=== PATIENT | female | born 1980 | race Asian ===

== ENCOUNTER 2025-01-03 11:09 | Outpatient (AMB) | payer OTHER, SELFPAY ==
--- NOTE | 2025-01-03 11:12 | AM.OFFWIN_ITS ---
Intake Vital Signs 01/03/25 11:16 Height 5 ft 2.8 in Weight 126 lb BMI 22.5 BP 113/63 Blood Pressure Location Rt brachial Position Sitting Pulse 74 Pulse Source Pulse Oximeter Temp 97.7 F Temp Source Oral Pulse Oximetry (%) 97 Oxygen Delivery Method Room Air Intake Visit Reasons: EP - Stomach Pain Intake Note: The patient complains of chronic epigastric area pain for over 10 years. She also presents the history of change in her stool color to brown or black. Allergies No Known Allergies Allergy (Verified 01/03/25 11:25) Do you need a note to return to daycare/school/sports/work: No HPI HPI Comments History of Present Illness Details History of Present Illness The patient is a 44-year-old female with a PMH of GERD, abnormal uterine bleeding status post laparoscopic total hysterectomy presenting for evaluation of stomach pain. - The patient reports a 10-year history of stomach pain, characterized by heartburn and excessive gas. - The pain is located in the upper abdom en and worsened by certain food. - She reports a particularly severe epis ode of pain approximately two weeks ago. - Associated symptoms include occasional burping - She currently takes daily probiotics a nd uses Gas-X as needed, and recently tried [id number] famotidine 10 mg, which provided some relief. - She noticed her stools became green, b ut she denies seeing any blood or black, tarry stools. - The patient has a history of two prior H. pylori infections in the past - She previously used to see [facility]. She was prescribed ranitidine and Protonix in the past, however states that she has stopped using both of those medications. 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 Status Post Hysterectomy and BSO: - The patient underwent a hysterectomy o n Jul 14 2024. - Post-operatively, she was prescribed i buprofen but did not take it for more than two days due to minimal pain. Review of Systems - CONSTITUTIONAL: Denies any fevers or c hills - GASTROINTESTINAL: Reports chronic epig astric pain, heartburn, excessive gas - Denies diarrhea or constipation. Denie s red blood in stool or black tarry/coffee ground appearance to stool. - Denies nausea, vomiting, or melena. Physical Exam General Appearance: Normal appearance, well developed. No acute distress Head: Normocephalic, atraumatic Pulmonary: No respiratory distress. Speaking in full sentences Abdomen: Minimal epigastric TTP. Normal Bowel sounds. No guarding or rigidity. Musculoskeletal: Moving all extremities spontaneously and against gravity Mental Status: Alert and Oriented x 3 Psychiatric: Normal mood. Normal affect. Physical Exam Vital Signs: Last Vital Signs Temp 97.7 F 01/03/25 11:16 Pulse 74 01/03/25 11:16 BP 113/63 01/03/25 11:16 Pulse Ox 97 01/03/25 11:16 Oxygen Delivery Method Room Air 01/03/25 11:16 BMI result Body Mass Index 22.5 Assessment & Plan Assessment & Plan (1) GERD (gastroesophageal reflux disease): Code(s): K21.9 - Gastro-esophageal reflux disease without esophagitis Qualifiers: Esophagitis presence: esophagitis presence not specified Qualified Code(s): K21.9 - Gastro-esophageal reflux disease without esophagitis Plan - The patient's presentation of epigastric pain, heartburn, and gas is consistent with GERD/gastritis. - An acute upper GI bleed is less likely, as she denies black, tarry stools, though she was counseled on symptoms to watch for. - Prescribed pantoprazole 20 mg once daily for symptom management. - Instructed to take [id number] famotidine 20 mg concurrently with pantoprazole. - Advised to avoid NSAIDs (e.g., ibuprofen), acidic foods (e.g., tomatoes, fruit juices), coffee, chocolate, and alcohol. - Counseled on lifestyle modifications, including avoiding lying down directly after meals and elevating the head of the bed. - Given her history of two prior H. pylori infections, recommended potential testing if no improvement in symptoms. - Discussed need to stop all proton pump inhibitors and H2 blockers (pantop razole, famotidine) for 14 days before H. pylori testing to ensure accuracy. - Provided strict emergency department precautions for signs of a GI bleed (black, tarry stools), severe pain, persistent vomiting, or new fevers. - Patient reports she has an upcoming appointment to establish with a new PCP in the next few weeks. Patient was informed and verbally consented to the use of an ambient scribe for clinic note documentation during the visit. Medications: New pantoprazole (Protonix) 20 mg PO DAILY 14 tabs 0RF Patient Instructions: Avoid acidic foods such as fruit juices, tomato sauces, coffee, and chocolate Avoid Motrin, Advil, Ibuprofen at this time Drink small sips of fluids frequently throughout the day Eat small frequent soft, bland meals throughout the day, avoid large meals Take pepcid 20 mg daily along with pantoprazole 20 mg daily Try to avoid eating after 8 pm Elevate the head of the bed by 8 inches which can reduce acid reflux while sleeping If worse, increasing pain, black tarry stools, nausea and vomiting and cant keep food or fluids down, go to the ER Follow up with your doctor for recheck and further resting Coding Level of Care Code New Pt Level 3 (04843) Diagnoses Gastroesophageal reflux disease, unspecified whether esophagitis present K21.9 Esophagitis presence: esophagitis presence not specified
[2025-01-03 11:16] VITALS: BP 113/63; PULSE 74; TEMP 36.5; O2SAT 97; BMI 22.5
== END 2025-01-03 12:12 | disposition home or self-care (01) ==
PROVIDERS: PCP Student in an Organized Health Care Education/Training Program; Visit Provider Family Medicine
DX: K21.9 Gastro-esophageal reflux disease without esophagitis (principal)

== ENCOUNTER 2025-01-24 08:29 | Outpatient (REF) | payer OTHER, SELFPAY ==
[2025-01-24 13:30] LABS: MANUAL DIFF FLAG NO
[2025-01-24 13:44] LABS: Hematocrit 42.6 % (37.0-47.0); Hemoglobin 14.1 g/dl (12.0-16.0); Imm Gran Abs Auto 0.02 X10*3/uL (0.00-0.03); Imm Gran Pct Auto 0.4 % (0.0-0.4); Lymphocytes Absolute Auto 1.2 X10*3/uL (1.2-4.9); Mean Corpuscular HGB Conc 33.1 g/dl (31.0-35.0); Mean Corpuscular Hemoglobin 28.0 pg (27.0-33.0); Mean Corpuscular Volume 84.5 fL (80.0-98.0); NRBC Abs Auto 0.000 X10*3/uL (0.0-0.012); NRBC Pct Auto 0.0 /100WBC (0.0-0.2); Platelet Count 335 X10*3/uL (160-400); Red Blood Count 5.04 X10*6/uL (4.20-5.50); White Blood Count 5.6 X10*3/uL (4.8-10.8)
[2025-01-24 14:01] LABS: Alanine Aminotransferase 16 U/L (0-31); Albumin Level 5.0 g/dL (3.5-5.0); Alkaline Phosphatase 57 U/L (39-117); Anion Gap 12 (12-20); Aspartate Amino Transferase 19 U/L (5-31); Blood Urea Nitrogen 16 mg/dL (9-16); Calcium 10.0 mg/dL (8.4-10.2); Carbon Dioxide 26 mmol/L (22-29); Chloride 106 mmol/L (96-108); Cholesterol 167 mg/dL (<200); Estimated Glomerular Filt Rate > 60; HDL Cholesterol 60 mg/dL (>40); Magnesium 2.3 mg/dL (1.6-2.6); Potassium 3.9 mmol/L (3.3-5.1); Sodium 140 mmol/L (135-145); Total Protein 8.0 g/dL (6.5-8.0); Triglycerides 89 mg/dL (<150)
[2025-01-24 14:24] LABS: Folate 12.6 ng/mL (> or = 4.0); Vitamin B12 929 pg/mL (200-900)
[2025-01-25 04:51] LABS: Syphilis Screen Nonreactive (Nonreactive)
[2025-01-25 05:11] LABS: HBS Num1 > 1000.00 mIU/mL (0-7.99); HBsAGNum1 0.28 S/CO (0.00-0.99); HIV Num 1 0.07 S/CO (0.00-0.99); Hepatitis B Surface Antigen Negative (Negative); ~HepC Num1 0.12 S/CO (0.00-0.79); ~Hepatitis B Surface Antibody REACTIVE (Nonreactive); ~Hepatitis C Antibody Nonreactive (Nonreactive)
[2025-01-28 17:13] LABS: VITAMIN D (1,25 OH) D3 41 pg/mL; Vit D (1,25-Dihydroxy) Total 41 pg/mL (18-72); Vitamin D (1,25 OH) D2 <8 pg/mL
== END 2025-01-24 08:30 | disposition home or self-care (01) ==
LOC: HO.HKASLDS 08:29
PROVIDERS: PCP Student in an Organized Health Care Education/Training Program; Visit Provider Student in an Organized Health Care Education/Training Program
DX: Z13.31 Encounter for screening for depression (principal); Z13.39 Encounter for screening examination for other mental health and behavioral disorders; K21.9 Gastro-esophageal reflux disease without esophagitis; R10.13 Epigastric pain; Z23 Encounter for immunization; Z13.1 Encounter for screening for diabetes mellitus; Z13.6 Encounter for screening for cardiovascular disorders; Z86.2 Personal history of diseases of the blood and blood-forming organs and certain disorders involving the immune mechanism
CPT/HCPCS: 36415; 80053; 80061; 82607; 82652; 82746; 83036; 83735; 84443; 85025; 86706; 86780; 86803; 87340; 87389; 90471; 90656; 96127

== ENCOUNTER 2025-01-24 08:29 | Outpatient (AMB) | payer OTHER, SELFPAY ==
--- NOTE | 2025-01-24 08:30 | A.OFFPC_ITS ---
Vital Signs 01/24/25 08:31 Height 5 ft 3.82 in Weight 127 lb 4 oz BMI 22.0 BP 99/60 Blood Pressure Location Lt brachial Position Sitting Pulse 75 Pulse Source Pulse Oximeter Temp 98.1 F Temp Source Oral Pulse Oximetry (%) 98 Oxygen Delivery Method Room Air Intake Visit Reasons: EP - est care Accompanied by: Self / Same As Patient Allergies No Known Allergies Allergy (Verified 01/24/25 08:31) Tobacco use date assessed: 01/24/25 Dental Screening Dental Screen Date: 01/24/25 Did you have a dental visit in the last 12 months?: Yes HPI HPI Comments History of Present Illness Details Consent The options for colon cancer screening were discussed with the patient, inclu ding an at-home stool test kit or a colonoscopy involving sedation and an internal camera to check for polyps. The patient verbally consented to proceed with a referral for a colonoscopy. Patient was informed and verbally consented to the use of an ambient scribe for clinic note documentation during this visit. History of Present Illness The patient is a 44 year old individual presenting for evaluation of stomach problems and to establish care. Gastroesophageal Reflux Disease: The patient has been experiencing stomach problems for over 10 years, characterized by frequent heartburn, excessive gas, and occasional pain. The patient notes that gas is particularly bad after eating vegetables. A prior trial of pantoprazole was not helpful, and a recent prescription for pantoprazole 20 mg offered only slight relief from the persistent heartburn. The patient also reports intermittent pain on the right side of the abdomen and recalls being told about an unspecified finding on the liver in the past. History of Helicobacter pylori infection: The patient has a history of two prior H. pylori infections, with the first occurring in 2011 and the second around 2015. The patient recalls a prior test for H. pylori may have been inaccurate because the patient was not instructed to stop taking medication beforehand. History of uterine fibroids: The patient had uterine fibroids which caused profuse bleeding, leading to severe anemia that necessitated a blood transfusion. This culminated in a hysterectomy on June 24 of the current year. Preventative Care: The patient is 44 years old and has never had a colon cancer screening. The last Pap smear was three years ago, and a mammogram this year was normal. The patient had an upper endoscopy approximately 10 years ago. Surgical History: - Hysterectomy for uterine fibroids on of current year. Medications: - Pantoprazole 20 mg for heartburn. - Unspecified mjno-pjp-cagjouu medicatio n from [facility], which was stopped due to causing constipation. Social History: - The patient denies smoking, alcohol us e, and illicit drug use. - The patient is single with two sons, b oth via normal delivery. 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 - Diet consists of regular foods like me at and vegetables, and the patient is currently trying to reduce sugar intake from items like cakes and dim sum. Family History: - Father had thyroid cancer. Diagnostic Results: - Mammogram: Normal results from this ye ar. Review of Systems - Constitutional: Denies weight loss. - Gastrointestinal: Reports persistent h eartburn, excessive gas, and interm ittent abdominal pain, sometimes localized to the right side. - Genitourinary: Status post-hysterectom y, with cessation of menses. 10-point ROS reviewed and negative excep t as noted in HPI Past Medical History - Chronic dyspepsia for over 10 years. - History of H. pylori infection, treate d in 2011 and again circa 2016. - History of uterine fibroids with jorgito rhagia and severe anemia requiring a blood transfusion. - History of upper endoscopy approximate ly 10 years ago. Health Maintenance - The patient is 44 years old and is due for initial colon cancer screening. - The last Pap smear was 3 years ago. - A mammogram was completed this year wi th normal results. - The patient is establishing care as a new patient. - Discussed dietary modifications, inclu ding an attempt to reduce sugar intake. Physical Exam General: Well-appearing, in no acute distress. Vital signs: Within normal limits. HEENT: Normocephalic, atraumatic. PERRLA, EOMI. Conjunctiva clear, sclera anicteric. Oropharynx clear, mucous membranes moist. TMs intact bilaterally. Neck: Supple, no lymphadenopathy, no thyromegaly, no JVD or carotid bruits. Cardiovascular: RRR, normal S1/S2, no murmurs, rubs, or gallops. Peripheral pulses 2+ and symmetric. No edema. Respiratory: Lungs clear to auscultation bilaterally, no wheezes, rales, or rhonchi. Normal effort. Abdomen: Soft, non-tender, non-distended. Normoactive bowel sounds. No hepatosplenomegaly, no masses. Reports right-sided pain, possibly related to gas. MSK: Full range of motion, no joint swelling or deformity. Normal gait. Skin: Warm, dry, intact. No rashes, lesions, or pallor. Neuro: Alert and oriented x3. Cranial nerves II-XII intact. Strength 5/5 throughout. Sensation intact. Reflexes 2+ symmetric. Normal coordination and gait. Psych: Appropriate mood and affect. Normal judgment and insight. Plan 1. Gastroesophageal Reflux Disease And A bdominal Pain - Prescribed pantoprazole 20 mg to be ta lebron twice daily, once in the morning and once at night; however, the patient is instructed to wait to start this until after collecting a stool sample. - Prescribed simethicone 125 mg to be ta lebron before meals for gas. - A referral will be placed for gastroen terology. - Follow-up scheduled in two weeks to as sess medication efficacy and review test results. 2. Screening For Helicobacter Pylori - Order for a stool sample will be place d to test for H. pylori. - Patient instructed to stop taking pant oprazole for at least two weeks before collecting the stool sample to ensure test accuracy. 3. Screening For Malignant Neoplasm Of C olon - A referral will be placed for a screen ing colonoscopy. 4. New Patient Visit - Baseline bloodwork ordered, including a complete blood count, comprehensive metabolic panel, thyroid studies, B12, folate, and vitamin D. - A urinalysis will be performed. Discussion Notes I saw the patient today to establish care for chronic stomach problems. We discussed the symptoms of heartburn, gas, and pain, as well as the patient's history of two prior H. pylori infections. I explained the plan to re-test for H. pylori via a stool sample, emphasizing the need to hold off on taking pantoprazole for two weeks prior to collection to ensure an accurate result. I prescribed simethicone for gas and will have the patient start pantoprazole 20mg twice daily after the stool collection is complete. As the patient is 44, I discussed the indication for colon cancer screening. We reviewed the options of an at-home stool test versus a colonoscopy, and the patient opted for a colonoscopy referral, which I will place. I am also placing a referral to gastroenterology for further evaluation. I reassured the patient that cancer is unlikely given the lack of weight loss. We will obtain baseline labs today and follow up in two weeks to review results and progress. Patient Instructions - Go to the lab for blood tests and a ur ine test today. - Do NOT take your pantoprazole medicine for at least two weeks. - After waiting two weeks, collect a sto ol sample using the kit you will be given and return it for testing. - After you have turned in the stool navjot ple, you may start taking Pantoprazole 20 mg twice a day (once in the morning and once at night). - You can take Simethicone 125 mg before you eat to help with gas. - Our office will send a referral for yo u to have a colonoscopy for colon cancer screening; their office will call you to schedule it. - We are also referring you to a stomach specialist (combustion engineer), who will also call you for an appointment. - Please make a follow-up appointment to see me in two weeks. Medical Decision Making The patient is a 44-year-old individual establishing care for chronic dyspepsia symptoms, including heartburn and gas, ongoing for over 10 years. The patient's history is significant for two prior H. pylori infections, raising suspicion for a recurrent or persistent infection. To ensure diagnostic accuracy, a stool antigen test for H. pylori is ordered, with explicit instructions to withhold PPI therapy for two weeks to prevent a false-negative result, which may have been an issue with prior testing. The therapeutic plan involves symptomatic control of gas with simethicone, followed by an empiric trial of increased-dose pantoprazole (20 mg BID) after the H. pylori test is completed. The differential diagnosis remains broad and includes refractory GERD, peptic ulcer disease, and functional dyspepsia; malignancy is less likely given the absence of alarm symptoms like weight loss. Due to the chronicity of symptoms and partial response to treatment, a referral to gastroenterology is warranted for consideration of further evaluation, such as an EGD. Health maintenance was also addressed. As the patient is 44, a screening colonoscopy is indicated and a referral has been placed per patient preference. Baseline labs are ordered to formally establish care, and a two-week follow-up is planned to discuss results and assess clinical progress. Total Time Statement 30 min Total time spent caring for the patient today includes pre-visit chart review, documentation, review of laboratory and diagnostic imaging results, medication reconciliation, medically necessary evaluation, counseling on diagnoses, care coordination, ordering appropriate tests and medications, review of tests performed by other providers, reporting test results to the patient, and communication with other healthcare providers. [facility] Medical History (Updated 01/24/25 @ 09:05 by Silver Llanes MD) Bloating History of uterine fibroid Family history of thyroid cancer History of anemia History of blood transfusion Epigastric pain History of Helicobacter pylori infection Chronic GERD Surgical History (Updated 01/24/25 @ 09:04 by Silver Llanes MD) H/O: hysterectomy Family History (Updated 01/24/25 @ 08:42 by Andressa Guzman STUDIO OPERATIONS MANAGER) Mother No problems noted. Father Thyroid cancer Social History Housing: House Patient Tobacco Use Status: Never used Tobacco e-Cigarette/Vaping Use: Never Used service: No Current occupational status: employed Cognitive needs: No Hearing needs: No Vision needs: No Questionnaire PHQ-9 Over the last 2 weeks, how often have you been bothered by any of the following problems? 1. Little interest or pleasure in doing things: not at all 2. Feeling down, depressed, or hopeless: not at all 3. Trouble falling or staying asleep, or sleeping too much: several days 4. Feeling tired or having little energy: several days 5. Poor appetite or overeating: not at all 6. Feeling bad about yourself - or that you are a failure or have let yourself or your family down: not at all 7. Trouble concentrating on things, such as reading the newspaper or watching television: not at all 8. Moving or speaking so slowly that other people could have noticed. Or the opposite - being so fidgety or restless that you have been moving around a lot more than usual: not at all 9. Thoughts that you would be better off or of hurting yourself in some way: not at all Total score: 2 Depression Screening Interpretation: Negative Depression Screening Done: Yes Source: Developed by Drs. Austyn Henning, Magui Antonio, Kade Steele and colleagues, with an educational ralph from [employer]. Thrive Questionnaire Date Thrive assessed: 01/24/25 I am a: Patient What is your living situation today?: I have a steady place to live Within the past 12 months, did the food you bought not last and you didn't have the money to get more?: I choose not to answer this question Within the past 12 months, did you worry whether your food would run out before you got money to buy more?: I choose not to answer this question Do you have trouble paying for medicines?: No Do you have trouble getting transportation to medical appointments?: No Do you have trouble paying your heating and electricity bill?: No Do you have trouble taking care of your child, family member or friend?: No Are you currently unemployed and looking for a job?: No Are you interested in more education?: Yes Please select the resources that you would like help with: Education Currently or been in a relationship where the following occur: I choose not to answer THRIVE Score: 0 AUDIT C Alcohol Use Questionnaire (AUDIT-C) 1. How often do you have a drink containing alcohol?: Never Total Score: 0 FROYLAN-7 AMB Questionnaire FROYLAN-7 Date FROYLAN - 7 assessed: 01/24/25 Feeling nervous, anxious, or on edge: 0 = Not at all Not being able to stop or control worryin = Not at all Worrying too much about different things: 1 = Several days Trouble relaxin = Not at all Being so restless that it is hard to sit still: 0 = Not at all Becoming easily annoyed or irritable: 0 = Not at all Feeling afraid as if something awful might happen: 0 = Not at all Total FROYLAN-7 score (0-4 normal; 5-9 mild; 10-14 moderate; 15-21 severe): 1 Source: Developed by Drs. Austyn Henning, Magui Antonio, Kade Steele and colleagues, with an educational ralph from [employer]. Review of Systems Narrative Review of Systems - Constitutional: Denies weight loss. - Gastrointestinal: Reports persistent heartburn, excessive gas, and intermittent abdominal pain, sometimes localized to the right side. - Genitourinary: Status post-hysterectomy, with cessation of menses. 10-point ROS reviewed and negative except as noted in HPI Physical exam (Primary Care) Vital Signs: Last Vital Signs Temp 98.1 F 01/24/25 08:31 Pulse 75 01/24/25 08:31 BP 99/60 01/24/25 08:31 Pulse Ox 98 01/24/25 08:31 Oxygen Delivery Method Room Air 01/24/25 08:31 BMI result Body Mass Index 22.0 Tobacco/Smoking Status: Tobacco use Status Tobacco use date assessed 01/24/25 01/24/25 08:34 Patient Tobacco Use Status Never used Tobacco 01/24/25 08:34 e-Cigarette/Vaping Use Never Used 01/24/25 08:44 PHQ-9: PHQ-9 Score PHQ-9: Total score 2 01/24/25 08:44 Depression Screening Interpretation: Negative Thrive Assessment: Date of Thrive Assessment Date Thrive assessed 01/24/25 01/24/25 08:34 Currently or been in a relationship where the following occur: I choose not to answer Narrative Physical Exam General: Well-appearing, in no acute distress. Vital signs: Within normal limits. HEENT: Normocephalic, atraumatic. PERRLA, EOMI. Conjunctiva clear, sclera anicteric. Oropharynx clear, mucous membranes moist. TMs intact bilaterally. Neck: Supple, no lymphadenopathy, no thyromegaly, no JVD or carotid bruits. Cardiovascular: RRR, normal S1/S2, no murmurs, rubs, or gallops. Peripheral pulses 2+ and symmetric. No edema. Respiratory: Lungs clear to auscultation bilaterally, no wheezes, rales, or rhonchi. Normal effort. Abdomen: Soft, non-tender, non-distended. Normoactive bowel sounds. No hepatosplenomegaly, no masses. Reports right-sided pain, possibly related to gas. MSK: Full range of motion, no joint swelling or deformity. Normal gait. Skin: Warm, dry, intact. No rashes, lesions, or pallor. Neuro: Alert and oriented x3. Cranial nerves II-XII intact. Strength 5/5 throughout. Sensation intact. Reflexes 2+ symmetric. Normal coordination and gait. Psych: Appropriate mood and affect. Normal judgment and insight. Office Procedures Flu Questionnaire Does the patient have a severe egg allergy?: No Does the patient have severe life threatening allergies?: No Does the patient have a fever or illness today?: No Has the patient ever had Guillain-[place] Syndrome?: No Has the patient ever had any past reaction to a flu shot?: No Immunizations Fluarix [id number] (PF) 45 mcg (15 mcg x 3)/0.5 mL IM syringe Performing Provider: Silver Llanes MD Performing Location: [facility] [place] Family [facility] Administered by: Andressa Guzman CMA on 01/24/25 08:48 Dose Route Admin Location Dispensed Lot Number Expiration Date [place] Catalogue Librarian 0.5 mL IM Left Deltoid 0.5 mL [id number] 08/22/25 [id number] [id number] VIS Given Date VIS Provided VIS Publication Date 01/24/25 Single Vaccine 24 Eligibility Eligibility Date Funding Source Not [facility] Eligible 01/24/25 Private Coding Level of Care Code New Pt Level 4 (74366) Diagnoses Chronic GERD K21.9 History of Helicobacter pylori infection Z86.19 Epigastric pain R10.13 H/O: hysterectomy Z90.710 History of blood transfusion Z92.89 History of anemia Z86.2 Family history of thyroid cancer Z80.8 History of uterine fibroid Z86.018 Bloating R14.0 Assessment & Plan Assessment & Plan (1) Chronic GERD: Code(s): K21.9 - Gastro-esophageal reflux disease without esophagitis Category: Medical (2) History of Helicobacter pylori infection: Code(s): Z86.19 - Personal history of other infectious and parasitic diseases Category: Medical (3) Epigastric pain: Code(s): R10.13 - Epigastric pain Category: Medical (4) H/O: hysterectomy: Code(s): Z90.710 - Acquired absence of both cervix and uterus Category: Surgical (5) History of blood transfusion: Code(s): Z92.89 - Personal history of other medical treatment Category: Medical (6) History of anemia: Code(s): Z86.2 - Personal history of diseases of the blood and blood-forming organs and certain disorders involving the immune mechanism Category: Medical (7) Family history of thyroid cancer: Code(s): Z80.8 - Family history of malignant neoplasm of other organs or systems Category: Medical (8) History of uterine fibroid: Code(s): Z86.018 - Personal history of other benign neoplasm Category: Medical (9) Bloating: Code(s): R14.0 - Abdominal distension (gaseous) Category: Medical Plan Orders: Orders Influenza [id number] Immunization Today Z23 - Encounter for immunization Complete Blood Count Auto Diff Today Z13.9 - Encounter for screening, unspecified Comprehensive Met. Panel Today Z13.9 - Encounter for screening, unspecified Hepatitis C Antibody Today Z13.9 - Encounter for screening, unspecified TSH reflex Free T4 Today Z13.9 - Encounter for screening, unspecified UA CC w/rflx Micro + Cult Today Z13.9 - Encounter for screening, unspecified Vitamin B12 and Folate Today Z13.9 - Encounter for screening, unspecified Hepatitis B Surface Antibody Today Z13.9 - Encounter for screening, unspecified H pylori Ag Stool Today Z13.9 - Encounter for screening, unspecified Hepatitis B Surface Antigen Today Z13.9 - Encounter for screening, unspecified Syphilis Screen Today Z13.9 - Encounter for screening, unspecified HIV Ab/Ag Today Z13.9 - Encounter for screening, unspecified Lipid Panel Today Z13.9 - Encounter for screening, unspecified Hemoglobin A1c Today Z13.9 - Encounter for screening, unspecified Magnesium Today Z13.9 - Encounter for screening, unspecified Vitamin D 1,25 dihydroxy Today Z13.9 - Encounter for screening, unspecified Referrals Gastroenterology Referral K21.9 - Gastro-esophageal reflux disease without esophagitis, Z86.19 - Personal history of other infectious and parasitic diseases Open Access Screening Colonoscopy Referral Z12.11 - Encounter for screening for malignant neoplasm of colon, Z12.12 - Encounter for screening for malignant neoplasm of rectum Medications: New simethicone (Gas Relief (simethicone)) 125 mg PO BID-QID PRN 60 caps 0RF abdominal distention Changed From pantoprazole (Protonix) 20 mg PO DAILY 14 tabs 0RF To pantoprazole (Protonix) 20 mg PO BID 60 tabs 0RF
[2025-01-24 08:31] VITALS: BP 99/60; PULSE 75; TEMP 36.7; O2SAT 98; BMI 22.0
== END 2025-01-24 09:03 | disposition home or self-care (01) ==
LOC: HO.HMCFMS 08:29
PROVIDERS: PCP Student in an Organized Health Care Education/Training Program; Visit Provider Student in an Organized Health Care Education/Training Program
DX: K21.9 Gastro-esophageal reflux disease without esophagitis (principal); Z86.19 Personal history of other infectious and parasitic diseases; R10.13 Epigastric pain; Z90.710 Acquired absence of both cervix and uterus; Z92.89 Personal history of other medical treatment; Z86.2 Personal history of diseases of the blood and blood-forming organs and certain disorders involving the immune mechanism; Z80.8 Family history of malignant neoplasm of other organs or systems; Z86.018 Personal history of other benign neoplasm; R14.0 Abdominal distension (gaseous); Z23 Encounter for immunization

== ENCOUNTER 2025-02-07 09:34 | Outpatient (AMB) | payer OTHER, SELFPAY ==
[2025-02-07 09:38] VITALS: BP 100/59; PULSE 72; TEMP 36.8; O2SAT 97; BMI 22.3
--- NOTE | 2025-02-07 09:38 | A.OFFPC_ITS ---
Vital Signs 02/07/25 09:38 Height 5 ft 3.39 in Weight 127 lb 8 oz BMI 22.3 BP 100/59 L Blood Pressure Location Lt brachial Position Sitting Pulse 72 Pulse Source Pulse Oximeter Temp 98.3 F Temp Source Oral Pulse Oximetry (%) 97 Oxygen Delivery Method Room Air Intake Visit Reasons: 2 wk lab review Accompanied by: Self / Same As Patient Allergies No Known Allergies Allergy (Verified 02/07/25 09:41) Medication List - Last Reconciled 02/07/25 by Silver Llanes MD simethicone (Gas Relief (simethicone)) 125 mg PO BID-QID PRN Tobacco use date assessed: 01/24/25 Dental Screening Dental Screen Date: 02/07/25 Did you have a dental visit in the last 12 months?: Yes Was dental information given to patient?: Patient has dentist HPI HPI Comments History of Present Illness Details History of Present Illness The patient is a 44 year old female presenting with follow-up for abdominal discomfort and right-sided abdominal pain. Abdominal Discomfort and Pain: The patient reports ongoing abdominal discomfort that is partially relieved by simethicone. She describes the sensation as pressure and bloating, but denies feeling full. She has also experienced intermittent, stabbing pain on the right side of her abdomen, which occurs at various times and is not consistently related to meals. There is no associated diarrhea or constipation. She has not taken pantoprazole for a couple of weeks in preparation for a stool study, which has not yet been completed. Hepatic Lesions: The patient has a history of a hepatic cyst. A CT scan on July 07, 2023, identified a 2.1 cm lesion in the right hepatic lobe. A subsequent MRI in 2024 confirmed a 2.9 cm benign cavernous hemangioma and also noted benign hepatic focal nodular hyperplasia. Her last ultrasound was performed around the time of the COVID pandemic. History of Abnormal Uterine Bleeding and Anemia: The patient has a history of heavy vaginal bleeding due to uterine fibroids, which led to a diagnosis of significant anemia. She was admitted to [facility] in 2024 where she received blood transfusions. She underwent a total laparoscopic hysterectomy with bilateral salpingectomy and cystoscopy on July 12, 2024. Post-surgery, she experienced hair loss and poor sleep, which were attributed to the anemia. Surgical History: - Total laparoscopic hysterectomy with b ilateral salpingectomy and cystoscopy (July 12, 2024) Medications: - Simethicone (gas pill) as needed for a bdominal discomfort - Probiotics for gut health - Vitamin D 1000 IU daily - Iron supplementation - Pantoprazole 20 mg daily, currently he ld Social History: - Diet: Reports eating a lot of vegetabl es and green items, which may contribute to her high vitamin B12 levels. - She recently tried a new Thai veget able that caused abdominal discomfort, so she has stopped eating it. Diagnostic Results: - Past Imaging: A CT scan on July 06 showed a 2.1 cm lesion in the right hepatic lobe. - MRI in 2024 identified a 2.9 cm benign cavernous hemangioma and benign hepatic focal nodular hyperplasia. - Endometrial biopsy was performed in ril 2024. - Labs (recent): - CBC, CMP, liver function, and kidney f unction are normal. - Hemoglobin A1c is normal, with no evid ence of prediabetes or diabetes. - Lipid panel: Triglycerides 89 mg/dL, T otal cholesterol 167 mg/dL, LDL 90 mg/dL, HDL 60 mg/dL. - Vitamin B12 is high at 929 pg/mL. - Vitamin D is at a good level. - Folate is normal. - Thyroid function is normal. - Hepatitis B, Hepatitis C, HIV, and syp hilis are all negative. Past Medical History - Hepatic cyst, focal nodular hyperplasi a, and cavernous hemangioma identified on imaging in 2023 and 2024. - Uterine fibroids causing abnormal uter ine bleeding, leading to significant anemia. - Hospitalization in 2024 at [facility] for anemia, requiring blood transfusions. Health Maintenance - Lab work was recently completed and re viewed, showing normal CBC, CMP, lipids, and hemoglobin A1c, with a high vitamin B12 level and good vitamin D level. - The patient continues to take vitamin D and iron supplements as recommended. - A stool sample for H. pylori testing i s pending. [facility] Medical History (Updated 02/07/25 @ 12:32 by Silver Llanes MD) Focal nodular hyperplasia of liver Cavernous hemangioma Hepatic cyst Bloating History of uterine fibroid Family history of thyroid cancer History of anemia History of blood transfusion Epigastric pain History of Helicobacter pylori infection Chronic GERD Surgical History H/O: hysterectomy Family History Mother No problems noted. Father Thyroid cancer Social History Housing: House Patient Tobacco Use Status: Never used Tobacco e-Cigarette/Vaping Use: Never Used service: No Current occupational status: employed Cognitive needs: No Hearing needs: No Vision needs: No Questionnaire PHQ-9 Over the last 2 weeks, how often have you been bothered by any of the following problems? 1. Little interest or pleasure in doing things: not at all 2. Feeling down, depressed, or hopeless: not at all 3. Trouble falling or staying asleep, or sleeping too much: several days 4. Feeling tired or having little energy: several days 5. Poor appetite or overeating: not at all 6. Feeling bad about yourself - or that you are a failure or have let yourself or your family down: not at all 7. Trouble concentrating on things, such as reading the newspaper or watching television: not at all 8. Moving or speaking so slowly that other people could have noticed. Or the opposite - being so fidgety or restless that you have been moving around a lot more than usual: not at all 9. Thoughts that you would be better off or of hurting yourself in some way: not at all Total score: 2 Depression Screening Interpretation: Negative Depression Screening Done: Yes Source: Developed by Drs. Austyn Henning, Magui Antonio, Kade Steele and colleagues, with an educational ralph from [employer]. Thrive Questionnaire Date Thrive assessed: 02/07/25 I am a: Patient What is your living situation today?: I have a steady place to live Within the past 12 months, did the food you bought not last and you didn't have the money to get more?: I choose not to answer this question Within the past 12 months, did you worry whether your food would run out before you got money to buy more?: I choose not to answer this question Do you have trouble paying for medicines?: No Do you have trouble getting transportation to medical appointments?: No Do you have trouble paying your heating and electricity bill?: No Do you have trouble taking care of your child, family member or friend?: No Are you currently unemployed and looking for a job?: No Are you interested in more education?: Yes Please select the resources that you would like help with: Education Currently or been in a relationship where the following occur: I choose not to answer THRIVE Score: 0 AUDIT C Alcohol Use Questionnaire (AUDIT-C) 1. How often do you have a drink containing alcohol?: Never Total Score: 0 FROYLAN-7 AMB Questionnaire FROYLAN-7 Date FROYLAN - 7 assessed: 02/07/25 Feeling nervous, anxious, or on edge: 0 = Not at all Not being able to stop or control worryin = Not at all Worrying too much about different things: 1 = Several days Trouble relaxin = Not at all Being so restless that it is hard to sit still: 0 = Not at all Becoming easily annoyed or irritable: 0 = Not at all Feeling afraid as if something awful might happen: 0 = Not at all Total FROYLAN-7 score (0-4 normal; 5-9 mild; 10-14 moderate; 15-21 severe): 1 Source: Developed by Drs. Austyn Henning, Magui Antonio, Kade Steele and colleagues, with an educational ralph from [employer]. Review of Systems Narrative Review of Systems - Constitutional: Denies pain. - Gastrointestinal: Reports abdominal discomfort, bloating, a feeling of pressure, and intermittent, stabbing right-sided abdominal pain. - She denies feeling full, diarrhea, and constipation. - Integumentary: Reports hair loss following her surgery. - Neurological: Reports poor sleep since her surgery. 10-point ROS reviewed and negative except as noted in HPI Physical exam (Primary Care) Vital Signs: Last Vital Signs Temp 98.3 F 02/07/25 09:38 Pulse 72 02/07/25 09:38 BP 100/59 L 02/07/25 09:38 Pulse Ox 97 02/07/25 09:38 Oxygen Delivery Method Room Air 02/07/25 09:38 BMI result Body Mass Index 22.3 Tobacco/Smoking Status: Tobacco use Status Tobacco use date assessed 01/24/25 02/07/25 09:44 Patient Tobacco Use Status Never used Tobacco 02/07/25 09:44 e-Cigarette/Vaping Use Never Used 02/07/25 09:44 PHQ-9: PHQ-9 Score PHQ-9: Total score 2 02/07/25 09:44 Depression Screening Interpretation: Negative Thrive Assessment: Date of Thrive Assessment Date Thrive assessed 02/07/25 02/07/25 09:44 Currently or been in a relationship where the following occur: I choose not to answer Narrative Physical Exam General: Well-appearing, in no acute distress. Vital signs: Within normal limits. HEENT: Normocephalic, atraumatic. PERRLA, EOMI. Conjunctiva clear, sclera anicteric. Oropharynx clear, mucous membranes moist. TMs intact bilaterally. Neck: Supple, no lymphadenopathy, no thyromegaly, no JVD or carotid bruits. Cardiovascular: RRR, normal S1/S2, no murmurs, rubs, or gallops. Peripheral pulses 2+ and symmetric. No edema. Respiratory: Lungs clear to auscultation bilaterally, no wheezes, rales, or rhonchi. Normal effort. Abdomen: Soft, non-tender, non-distended. Normoactive bowel sounds. No hepatosplenomegaly, no masses. Reports occasional stabbing pain on the right side, comes and goes, pos murphys sign MSK: Full range of motion, no joint swelling or deformity. Normal gait. Skin: Warm, dry, intact. No rashes, lesions, or pallor. Neuro: Alert and oriented x3. Cranial nerves II-XII intact. Strength 5/5 throughout. Sensation intact. Reflexes 2+ symmetric. Normal coordination and gait. Psych: Appropriate mood and affect. Normal judgment and insight. Office Procedures Flu Questionnaire Does the patient have a severe egg allergy?: No Does the patient have severe life threatening allergies?: No Does the patient have a fever or illness today?: No Has the patient ever had Guillain-[place] Syndrome?: No Has the patient ever had any past reaction to a flu shot?: No Immunizations Fluarix [id number] (PF) 45 mcg (15 mcg x 3)/0.5 mL IM syringe Performing Provider: Silver Llanes MD [facility] Documented (not given) by: Andressa Guzman CMA on 02/07/25 09:49 Reason Not Given: Received Previously Coding Level of Care Code Est Pt Level 3 (12736) Add On Problem Visit Only Diagnoses Hepatic cyst K76.89 Cavernous hemangioma D18.00 Focal nodular hyperplasia of liver K76.89 Chronic GERD K21.9 History of Helicobacter pylori infection Z86.19 Bloating R14.0 Assessment & Plan Assessment & Plan (1) Hepatic cyst: Code(s): K76.89 - Other specified diseases of liver Category: Medical (2) Cavernous hemangioma: Code(s): D18.00 - Hemangioma unspecified site Category: Medical (3) Focal nodular hyperplasia of liver: Code(s): K76.89 - Other specified diseases of liver Category: Medical (4) Chronic GERD: Code(s): K21.9 - Gastro-esophageal reflux disease without esophagitis Category: Medical (5) History of Helicobacter pylori infection: Code(s): Z86.19 - Personal history of other infectious and parasitic diseases Category: Medical (6) Bloating: Code(s): R14.0 - Abdominal distension (gaseous) Category: Medical Plan Consent Patient was informed and verbally consented to the use of an ambient scribe for clinic note documentation during this visit. Plan 1. Abdominal Pain And Discomfort - The patient will obtain a collection cup and provide a stool sample for H. pylori testing. 2. Hepatic Cyst - An abdominal ultrasound will be ordered for further evaluation of the liver, given the patient's report of right-sided pain and history of a liver cyst recently identified on a CT scan. 3. History Of Anemia - The patient is advised to continue her iron supplementation for now. Discussion Notes I reviewed the patient's history, including her gastrointestinal symptoms, prior imaging of her liver showing a cyst, and her recent lab results. I explained that her recent blood work, including liver function tests, is normal. I also reassured her that the high vitamin B12 level is not a concern and is likely related to her diet. Given her ongoing right-sided abdominal pain and the previous finding of a liver cyst, I recommended a new abdominal ultrasound to re-evaluate. I also instructed her on the process for collecting and submitting the pending stool sample for H. pylori testing. Patient Instructions - Go to the lab to pick and shovel man a collection cup for your stool sample. - Collect the stool sample and drop it off at the lab. - You can drop off the sample on a different day from when you collect it. - Continue taking your iron supplement. - Continue taking your vitamin D supplement. - We will order an ultrasound of your abdomen to check on your liver. - Continue to hold off on taking pantoprazole until after you submit the stool sample. Medical Decision Making The patient, a 44-year-old female, presents for follow-up of abdominal discomfort and intermittent right-sided pain. Her symptoms include bloating and pressure, partially relieved by simethicone, and a new-onset stabbing pain on the right side. Her past medical history is significant for hepatic lesions, including a cyst, hemangioma, and focal nodular hyperplasia, identified on imaging in 2023 and 2024. Recent comprehensive labs, including LFTs, are unremarkable. The patient is pending a stool sample for H. pylori to evaluate her dyspeptic symptoms. Given the new right-sided pain in the context of known hepatic lesions, an abdominal ultrasound is warranted to assess for any changes, despite reassuring labs. The plan is to complete the H. pylori testing and obtain the ultrasound for further evaluation. Total Time Statement 20 min Total time spent caring for the patient today includes pre-visit chart review, documentation, review of laboratory and diagnostic imaging results, medication reconciliation, medically necessary evaluation, counseling on diagnoses, care coordination, ordering appropriate tests and medications, review of tests performed by other providers, reporting test results to the patient, and communication with other healthcare providers. Orders: Orders Influenza [id number] Immunization Today Z23 - Encounter for immunization US abdomen limited Today D18.00 - Hemangioma unspecified site, K76.89 - Other specified diseases of liver
== END 2025-02-07 10:01 | disposition home or self-care (01) ==
LOC: HO.HMCFMS 09:34
PROVIDERS: PCP Student in an Organized Health Care Education/Training Program; Visit Provider Student in an Organized Health Care Education/Training Program
DX: K76.89 Other specified diseases of liver (principal); D18.00 Hemangioma unspecified site; K21.9 Gastro-esophageal reflux disease without esophagitis; Z86.19 Personal history of other infectious and parasitic diseases; R14.0 Abdominal distension (gaseous); Z23 Encounter for immunization

== ENCOUNTER 2025-02-07 09:34 | Outpatient (REF) | payer OTHER, SELFPAY | END 2025-02-07 09:35 | disposition home or self-care (01) | LOC: HO.HKASLDS 09:34 | PROVIDERS: PCP Student in an Organized Health Care Education/Training Program; Visit Provider Student in an Organized Health Care Education/Training Program | DX: Z28.89 Immunization not carried out for other reason (principal); K76.89 Other specified diseases of liver; D18.00 Hemangioma unspecified site; K21.9 Gastro-esophageal reflux disease without esophagitis; Z86.19 Personal history of other infectious and parasitic diseases; R14.0 Abdominal distension (gaseous) | CPT/HCPCS: 90471; 96127 ==

== ENCOUNTER 2025-02-14 09:52 | Outpatient (REF) | payer OTHER, SELFPAY ==
[2025-02-14 13:45] LABS: Appearance Urine Turbid; Glucose Urine UA Negative (Negative); PH 5.5 (5.0-9.0); Specific Gravity - Urine 1.025 (1.005-1.025)
== END 2025-02-14 09:53 | disposition home or self-care (01) ==
LOC: HO.HKASLDS 09:52
PROVIDERS: PCP Student in an Organized Health Care Education/Training Program; Visit Provider Student in an Organized Health Care Education/Training Program
DX: Z13.9 Encounter for screening, unspecified (principal)
CPT/HCPCS: 81003